=== PATIENT | male | born 1990 | race Caucasian/White ===

== ENCOUNTER 2016-10-16 14:06 | Emergency (ER) | payer OTHER ==
[2016-10-16 16:52] LABS: Hematocrit 43 % (42-52); Hemoglobin 14.7 g/dl (14.0-18.0); Mean Corpuscular HGB Conc 34 g/dl (31-36); Mean Corpuscular Hemoglobin 32 pg (27-31); Mean Corpuscular Volume 94 fL (80-94); Mean Platelet Volume 10 um3 (7.4-10.4); Red Blood Count 4.63 10^6/ul (4.0-5.4); Red Cell Distribution Width 13 % (10.5-15); White Blood Count 3.3 10^3/ul (3.5-10.8)
[2016-10-16 16:58] LABS: Add Diff/Slide Review? Slide Review Added; Comments Flag Yes
[2016-10-16 17:06] LABS: ALT 12 U/L (7-52); AST 19 U/L (13-39); Albumin 4.5 g/dL (3.2-5.2); Alkaline Phosphatase 42 U/L (34-104); Amylase 48 U/L (29-103); Anion Gap 4 mmol/L (2-11); BUN/Creatinine Ratio 12.5 (8-20); Blood Urea Nitrogen 13 mg/dL (6-24); C Reactive Protein < 1.00 mg/L (< 5.00); CO2 Carbon Dioxide 29 mmol/L (22-32); Calcium 9.5 mg/dL (8.6-10.3); Chloride 105 mmol/L (101-111); EGFR African American 111.9 (>60); Globulin 2.7 g/dL (2-4); Glucose 126 mg/dL (70-100); Lipase 31 U/L (11.0-82.0); Potassium 3.7 mmol/L (3.5-5.0); Sodium 138 mmol/L (133-145); Total Protein 7.2 g/dL (6.4-8.9)
--- NOTE | 2016-10-16 17:29 | RAD ---
Indication: Chest pain, pneumonia. 2 views of the chest including dual energy PA views demonstrate no mediastinal shift. Heart is of normal size and configuration. Lung white show no pleural fluid, pneumonia or pneumothorax. IMPRESSION: No active cardiopulmonary disease is noted.
--- NOTE | 2016-10-16 17:30 | RAD ---
Indication: Chest pain, abdominal pain. Flat and upright views of the abdomen demonstrates no free air. The colon is filled with stool. No dilated loops of bowel are noted. IMPRESSION: No free air or obstruction is identified.
[2016-10-16] MEDS ORDERED: Magnesium CITRATE* 300 ML BTL PO ONE (17:58)
--- NOTE | 2016-10-17 09:41 | ED ---
Mattie Rosenberg Thomas, scribed for Tyree Lockett MD on 10/16/16 at 1640 . Abdominal Pain/Male - HPI Summary HPI Summary: The pt is a 26 y/o M referred to the ED from [facility] and c/o intermittent L- sided abd pain that began 3 weeks ago. The pt rates the pain 7/10 and is described as being pushed with needles. The pain is sometimes aggravated by eating and sitting up. The pain is not aggravated by deep breaths or position. It is not alleviated by anything. The patient has treated the pain with nothing [employer]. Pt additionally c/o burning in throat, and sore throat. Pt denies V/D, and bloody stools. PMHx: gastric ulcers, H. Pylori. PSHx: none. SHx: no smoking, no alcohol use. FHx: HTN. 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 - History of Current Complaint Chief Complaint: EDChestWallPain Stated Complaint: LT SIDE SHARP CHEST PAIN Time Seen by Provider: 10/16/16 16:26 Hx Obtained From: Patient Onset/Duration: Lasting Weeks - 3, Still Present Timing: Intermittent Pain Intensity: 7 Pain Scale Used: 0-10 Numeric Location: Other - L-sided Aggravating Factor(s): Food, Other: - Sitting up Alleviating Factor(s): Nothing Associated Signs And Symptoms: Positive: Other - POS: burning in throat, sore throat. Negative: Fever, Blood in Stool, Vomiting, Diarrhea - Allergies/Home Medications Allergies/Adverse Reactions: Allergies Allergy/AdvReac Type Severity Reaction Status Date / Time No Known Allergies Allergy Verified 10/16/16 18:09 PMH/Surg Hx/FS Hx/Imm Hx Previously Healthy: No Respiratory History: Denies: Hx Chronic Obstructive Pulmonary Disease (COPD) GI History: Reports: Hx Ulcer, Other GI Disorders - Hx H. Pylori - Surgical History Surgery Procedure, Year, and Place: None Infectious Disease History: No Infectious Disease History: Denies: Traveled Outside the [place] in Last 30 Days - Family History Known Family History: Positive: Hypertension - Social History Alcohol Use: Occasionally Alcohol Amount: None in two Substance Use Type: Reports: None Smoking Status (MU): Never Smoked Tobacco Review of Systems Negative: Fever Positive: Sore Throat Positive: Abdominal Pain - L-sided, onset 3 weeks ago, intermittent. Negative: Vomiting, Diarrhea, Other - POS: bloody stools All Other Systems Reviewed And Are Negative: Yes Physical Exam - Summary Physical Exam Summary: The patient is well-nourished in no acute distress and in no acute pain. The skin is warm and dry and skin color reflects adequate perfusion. HEENT: The head is normocephalic and atraumatic. The pupils are equal and reactive. The conjunctivae are clear and without drainage. Nares are patent and without drainage. Mouth reveals moist mucous membranes and the throat is without erythema and exudate. The external ears are intact. The ear canals are patent and without drainage. The tympanic membranes are intact. Neck is supple with full range of motion and non-tender. There are no carotid bruits. There is no neck vein distension. Respiratory: Chest is non-tender. Lungs are clear to auscultation and breath sounds are symmetrical and equal. Cardiovascular: Heart is regular rate and rhythm. There is no murmur or rub auscultated. There is no peripheral edema and pulses are symmetrical and equal. Abdomen: There is some epigastric pain. There is pain at the inferior aspect of the left lower ribs. Otherwise, the abdomen is soft and non-tender. There is no CVA tenderness. There are normal bowel sounds heard in all four quadrants and there is no organomegaly palpated. Musculoskeletal: There is no back pain noted. Extremities are non-tender with full range of motion. There is good capillary refill. There is no peripheral edema or calf tenderness elicited. Neurological: Patient is alert and oriented to person, place and time. The patient has symmetrical motor strength in all four extremities. Cranial nerves are grossly intact. Deep tendon reflexes are symmetrical and equal in all four extremities. Psychiatric: The patient has an appropriate affect and does not exhibit any anxiety or depression. Triage Information Reviewed: Yes Vital Signs On Initial Exam: Initial Vitals Temp Pulse Resp BP Pulse Ox 97.8 F 66 16 133/77 100 10/16/16 14:12 10/16/16 14:12 10/16/16 14:12 10/16/16 14:12 10/16/16 14:12 Vital Signs Reviewed: Yes - Aneudy Coma Scale Coma Scale Total: 15 Diagnostics - Vital Signs Vital Signs Temp Pulse Resp BP Pulse Ox 10/16/16 15:30 67 16 142/82 100 10/16/16 15:10 97.8 F 72 20 132/70 100 10/16/16 15:00 77 20 132/70 99 10/16/16 14:56 65 13 100 10/16/16 14:54 130/65 10/16/16 14:12 97.8 F 66 16 133/77 100 - Laboratory Lab Results: Lab Results 10/16/16 10/16/16 10/16/16 Range/Units 15:05 15:05 15:05 WBC 3.3 L (3.5-10.8) 10^3/ul RBC 4.63 (4.0-5.4) 10^6/ul Hgb 14.7 (14.0-18.0) g/dl Hct 43 (42-52) % MCV 94 (80-94) fL MCH 32 H (27-31) pg MCHC 34 (31-36) g/dl RDW 13 (10.5-15) % Plt Count 184 (150-450) 10^3/ul MPV 10 (7.4-10.4) um3 Neut % (Auto) 60.8 (38-83) % Lymph % (Auto) 27.8 (25-47) % Surry % (Auto) 7.0 (1-9) % Eos % (Auto) 3.2 (0-6) % Baso % (Auto) 1.2 (0-2) % Absolute Neuts (auto) 2.0 (1.5-7.7) 10^3/ul Absolute Lymphs (auto) 0.9 L (1.0-4.8) 10^3/ul Absolute Monos (auto) 0.2 (0-0.8) 10^3/ul Absolute Eos (auto) 0.1 (0-0.6) 10^3/ul Absolute Basos (auto) 0 (0-0.2) 10^3/ul Absolute Nucleated RBC 0.01 10^3/ul Nucleated RBC % 0.2 Sodium 138 (133-145) mmol/L Potassium 3.7 (3.5-5.0) mmol/L Chloride 105 (101-111) mmol/L Carbon Dioxide 29 (22-32) mmol/L Anion Gap 4 (2-11) mmol/L BUN 13 (6-24) mg/dL Creatinine 1.04 (0.67-1.17) mg/dL Est GFR ( Amer) 111.9 (>60) Est GFR (Non-Af Amer) 87.0 (>60) BUN/Creatinine Ratio 12.5 (8-20) Glucose 126 H (70-100) mg/dL Lactic Acid (0.5-2.0) mmol/L Calcium 9.5 (8.6-10.3) mg/dL Total Bilirubin 1.00 (0.2-1.0) mg/dL AST 19 (13-39) U/L ALT 12 (7-52) U/L Alkaline Phosphatase 42 (34-104) U/L Troponin I 0.00 (<0.04) ng/mL C-Reactive Protein < 1.00 (< 5.00) mg/L B-Natriuretic Peptide 12 ( - 100) pg/mL Total Protein 7.2 (6.4-8.9) g/dL Albumin 4.5 (3.2-5.2) g/dL Globulin 2.7 (2-4) g/dL Albumin/Globulin Ratio 1.7 (1-3) Amylase 48 (29-103) U/L Lipase 31 (11.0-82.0) U/L 10/16/ Range/Units 17:05 WBC (3.5-10.8) 10^3/ul RBC (4.0-5.4) 10^6/ul Hgb (14.0-18.0) g/dl Hct (42-52) % MCV (80-94) fL MCH (27-31) pg MCHC (31-36) g/dl RDW (10.5-15) % Plt Count (150-450) 10^3/ul MPV (7.4-10.4) um3 Neut % (Auto) (38-83) % Lymph % (Auto) (25-47) % Surry % (Auto) (1-9) % Eos % (Auto) (0-6) % Baso % (Auto) (0-2) % Absolute Neuts (auto) (1.5-7.7) 10^3/ul Absolute Lymphs (auto) (1.0-4.8) 10^3/ul Absolute Monos (auto) (0-0.8) 10^3/ul Absolute Eos (auto) (0-0.6) 10^3/ul Absolute Basos (auto) (0-0.2) 10^3/ul Absolute Nucleated RBC 10^3/ul Nucleated RBC % Sodium (133-145) mmol/L Potassium (3.5-5.0) mmol/L Chloride (101-111) mmol/L Carbon Dioxide (22-32) mmol/L Anion Gap (2-11) mmol/L BUN (6-24) mg/dL Creatinine (0.67-1.17) mg/dL Est GFR ( Amer) (>60) Est GFR (Non-Af Amer) (>60) BUN/Creatinine Ratio (8-20) Glucose (70-100) mg/dL Lactic Acid 0.7 (0.5-2.0) mmol/L Calcium (8.6-10.3) mg/dL Total Bilirubin (0.2-1.0) mg/dL AST (13-39) U/L ALT (7-52) U/L Alkaline Phosphatase (34-104) U/L Troponin I (<0.04) ng/mL C-Reactive Protein (< 5.00) mg/L B-Natriuretic Peptide ( - 100) pg/mL Total Protein (6.4-8.9) g/dL Albumin (3.2-5.2) g/dL Globulin (2-4) g/dL Albumin/Globulin Ratio (1-3) Amylase (29-103) U/L Lipase (11.0-82.0) U/L Result Diagrams: 10/16/16 15:05 10/16/16 15:05 Lab Statement: Any lab studies that have been ordered have been reviewed, and results considered in the medical decision making process. - Radiology CXR Xray Interpretation: No Acute Changes - no active cardiopulmonary disease. ED physician reviewed report and agrees. X Radiology Interpretation Completed By: Radiologist XR Abdo Xray Interpretation: No Acute Changes - No free air or obstruction. ED physician reviews report and agrees. Radiology Interpretation Completed By: Radiologist - EKG 14:14 Cardiac Rate: NL - 60 BPM EKG Interpretation: Early repolarization. Nonspecific IVCD. Nml axis. No STEMI Re-Evaluation - Re-Evaluation First Eval Re-Evaluation Time: 18:00 Change: Unchanged Comment: I discussed his labs, EKG, and radiology. I informed him on treatment going forward Abdominal Pain Fem Course/Dx - Diagnoses Differential Diagnosis/HQI/PQRI: Constipation Provider Diagnoses: Musculoskeletal pain, Constipation Discharge - Discharge Plan Condition: Stable Disposition: HOME Patient Education Materials: Musculoskeletal Pain (ED), Constipation (ED) Forms: *Work Release Referrals: Lina Amor NP [Primary Care Provider] - 3 Days Additional Instructions: Take half a bottle of magnesium citrate tonight and the other half tomorrow. Follow up with your primary care provider. The documentation as recorded by the Mattie whitt Thomas accurately reflects the service I personally performed and the decisions made by me, Tyree Lockett MD.
== END 2016-10-16 18:11 | disposition home or self-care (01) ==
LOC: ED 14:06
DX: J02.9 Acute pharyngitis, unspecified (principal); M79.1 Myalgia; K59.00 Constipation, unspecified
CPT/HCPCS: 36415; 71020; 74020; 80053; 82150; 83605; 83690; 83880; 84484; 85025; 86140; 93005; 99282; A9270-GY